=== PATIENT | male | born 1990 | race Caucasian/White ===

== ENCOUNTER 2021-12-31 21:27 | Emergency (ER) | payer BC, SELFPAY ==
[2021-12-31 21:41] VITALS: BP 120/85; PULSE 104; RESP 20; TEMP 36.7; O2SAT 95; BMI 18.5
--- NOTE | 2021-12-31 21:54 | ED_ITS ---
HPI - Psych General Chief Complaint: Psychiatric Problem/Disorder Stated Complaint: Stressed, mental health Time Seen by Provider: 12/31/21 21:49 History of Present Illness HPI Narrative: Pt states that he has been going through a difficult time recently with increase stress. He has made several statements to his that he is going to kill himself and that they would not be able to stop him. Pt has a history of both self injurious behavior as well as suicide attempts in the past. Pt states he has no pain or discomfort at this time. He has not injured himself recently and has not used any substances of abuse recently. Pt does not appear to have a finite plan of self harm. Only home medication is Synthroid. Related Data Allergies Allergy/AdvReac Type Severity Reaction Status Date / Time No Known Drug Allergies Allergy Verified 12/31/21 21:40 Review of Systems Status of ROS: Reports: 10 or more systems reviewed and unremarkable except as noted in History and below PFSH PFSH Medical History Depression Suicide attempt by drug overdose Social History Smoking Status: Never smoker Non-prescribed substance use: marijuana (any form) Exam Narrative: Exam Narrative: EXAM GENERAL: Patient appears comfortable and well. EYES: No scleral icterus. THYROID: no thyroid nodules or thyromegaly. LYMPH: No supraclavicular or cervical lymphadenopathy. SKIN: Visible skin seen during exam normal or with benign process only. EXT: No dependent lower extremity pedal edema. HEART: Regular rate and rhythm with no murmurs, rubs, or gallops. LUNGS: Clear to auscultation bilaterally with no crackles or wheezes. ABD: Soft, non tender, non distended. PSYCH: Good eye contact, speech is not pressured. Const: Vital Signs, click to edit/add: Vital Signs - 24 hr 12/31/21 21:41 Temperature 98.0 F Pulse Rate [Left P ulse Oximeter] 104 H Respiratory Rate 20 Blood Pressure [Ri ght Upper Arm] 120/85 Pulse Oximetry 95 Oxygen Delivery Me thod Room Air Course Course Hospital Course: Pt seen and examined. Appropriate laboratories collected. Tele psych requested. Reevaluation(s) Reevaluation #1: Labs reviewed. Psych assessment indicates that the patient can be safely discharged with outpt follow up. Pt contracts for safety. Time: 23:58 Vital Signs Vital signs: Initial Vital Signs Temperature 98.0 F 12/31/21 21:41 Temperature Source Temporal Artery Scan 12/31/21 21:41 Pulse Rate 104 H 12/31/21 21:41 Pulse Rhythm 12/31/21 21:41 Respiratory Rate 20 12/31/21 21:41 Blood Pressure 120/85 12/31/21 21:41 Blood Pressure Mean 96 12/31/21 21:41 Blood Pressure Position Semi-Fowlers 12/31/21 21:41 Pulse Oximetry 95 12/31/21 21:41 Oxygen Delivery Method 12/31/21 21:41 Vital Signs Temperature 98.0 F 12/31/21 21:41 Pulse Rate 104 H 12/31/21 21:41 Respiratory Rate 20 12/31/21 21:41 Blood Pressure 120/85 12/31/21 21:41 Pulse Oximetry 95 12/31/21 21:41 Oxygen Delivery Method 12/31/21 21:41 Temperature 98.0 F 12/31/21 21:41 Pulse Rate 104 H 12/31/21 21:41 Respiratory Rate 20 12/31/21 21:41 Blood Pressure 120/85 12/31/21 21:41 Pulse Oximetry 95 12/31/21 21:41 Oxygen Delivery Method 12/31/21 21:41 MDM - Psych MDM Narrative Medical decision making narrative: Pt presents after making suicidal comments. Pt lab positive for marijuana use. DEC assessment indicates pt can be discharged with outpt follow up. No unstable medical issues. Pt contracts for self care and is discharged. Differential Diagnosis Differential diagnosis: Likely acute psychosis, suicidal ideation, bipolar disorder, depression, drug-induced psychotic disorder and acute anxiety Lab Data Labs: Lab Results 12/31/21 12/31/21 12/31/21 Range/Units 22:14 22:14 22:55 WBC 9.83 (4.50-11.00) K/uL RBC 5.17 (4.30-5.90) m/uL Hgb 16.0 (13.5-17.5) gm/dL Hct 46.7 (37.0-53.0) % MCV 90 (80-100) fL MCH 31 (26-34) pg MCHC 34 (32-36) gm/dL RDW Coeff of Ted 11.9 (11.5-15.5) % Plt Count 335 (140-440) K/uL Neut % (Auto) 77.0 H (42.0-72.0) % Lymph % (Auto) 16.2 L (20-44) % [place] % (Auto) 5.7 (0.0-11.0) % Eos % (Auto) 0.1 (0.0-7.0) % Baso % (Auto) 0.4 (0.0-3.0) % Neut # (Auto) 7.60 H (1.7-7.0) K/uL Lymph # (Auto) 1.60 (0.90-2.90) K/uL [place] # (Auto) 0.60 (0.00-0.90) K/UL Eos # (Auto) 0.01 (0.00-0.50) K/uL Baso # (Auto) 0.04 (0.00-0.30) K/uL Abs Immat Gran (auto) 0.06 (0.00-0.30) K/uL Sodium 138 (135-149) mmol/L Potassium 3.8 (3.6-5.1) mmol/L Chloride 103 (96-114) mmol/L Carbon Dioxide 23 (20-32) mmol/L BUN 17 (5-24) mg/dL Creatinine 0.9 (0.5-1.5) mg/dL Estimated Creat Clear 93.62 Estimated GFR 116 ml/min Glucose 118 H (60-115) mg/dL Calcium 9.8 (8.4-10.6) mg/dL Total Bilirubin 0.8 (0.1-1.5) mg/dL AST 35 (12-35) U/L ALT 28 (4-50) U/L Alkaline Phosphatase 68 (40-150) U/L Total Protein 8.2 (6.0-8.3) g/dL Albumin 5.2 H (3.3-5.0) g/dL Salicylates 3.3 (1.0-10) mg/dL Urine Opiates Screen Negative (Negative) Ur Oxycodone Screen Negative (Negative) Urine Methadone Screen Negative (Negative) Ur Propoxyphene Screen Negative (Negative) Acetaminophen < 10.0 L (10.0-30.0) ug/mL Ur Barbiturates Screen Negative (Negative) U Tricyclic Antidepress Negative (Negative) Ur Phencyclidine Scrn Negative (Negative) Ur Amphetamines Screen Negative (Negative) U Methamphetamines Scrn Negative (Negative) U Benzodiazepines Scrn Negative (Negative) Urine Cocaine Screen Negative (Negative) U Marijuana (THC) Screen POSITIVE A* (Negative) Ur Drug Screen Comment See Note Ethyl Alcohol < 0.01 L (0.01-0.03) % Discharge Plan Discharge Clinical Impression: Depression Patient Disposition: Home, Self-Care Condition: Stable Instructions: Depression (ED) Additional Instructions: Follow outpatient plan as discussed. Return if we can be of further help. Activity Level: No Restrictions Discharge Diet: Regular Stand Alone Forms: [facility] Info Instructions
[2021-12-31 22:18] LABS: Basophils Absolute Auto 0.04 K/uL (0.00-0.30); Basophils Percent Auto 0.4 % (0.0-3.0); Eosinophils Absolute Auto 0.01 K/uL (0.00-0.50); Eosinophils Percent Auto 0.1 % (0.0-7.0); Hematocrit 46.7 % (37.0-53.0); Immature Granulocytes Abs Auto 0.06 K/uL (0.00-0.30); Lymphocytes Percent Auto 16.2 % (20-44); Mean Corpuscular HGB Conc 34 gm/dL (32-36); Mean Corpuscular Hemoglobin 31 pg (26-34); Mean Corpuscular Volume 90 fL (80-100); Monocytes Percent Auto 5.7 % (0.0-11.0); Platelet Count* 335 K/uL (140-440); RDW Coefficient of Variation % 11.9 % (11.5-15.5); Red Blood Count 5.17 m/uL (4.30-5.90); White Blood Count* 9.83 K/uL (4.50-11.00)
[2021-12-31 22:40] LABS: Slide Review Reflex No
[2021-12-31 22:43] LABS: Albumin* 5.2 g/dL (3.3-5.0); Chloride* 103 mmol/L (96-114)
[2021-12-31 22:44] LABS: Potassium* 3.8 mmol/L (3.6-5.1); Sodium* 138 mmol/L (135-149)
[2021-12-31 22:46] LABS: Alanine Aminotransferase* 28 U/L (4-50); Alkaline Phosphatase* 68 U/L (40-150); Aspartate Amino Transferase* 35 U/L (12-35); Bilirubin Total* 0.8 mg/dL (0.1-1.5); Blood Urea Nitrogen* 17 mg/dL (5-24); Carbon Dioxide* 23 mmol/L (20-32); Creatinine* 0.9 mg/dL (0.5-1.5); Est. Creatinine Clearance* 93.62; Estimated Glomerular Filt Rate 116 ml/min; Glucose* 118 mg/dL (60-115); Total Protein* 8.2 g/dL (6.0-8.3)
[2021-12-31 22:47] LABS: Calcium* 9.8 mg/dL (8.4-10.6); Salicylate* 3.3 mg/dL (1.0-10)
[2021-12-31 22:49] LABS: Acetaminophen* < 10.0 ug/mL (10.0-30.0); Ethanol* < 0.01 % (0.01-0.03)
[2021-12-31 23:12] LABS: Amphetamine Screen Urine Negative (Negative); Barbiturate Screen Urine Negative (Negative); Benzodiazepines Screen Urine Negative (Negative); Cocaine Screen Urine Negative (Negative); Methadone Screen Urine Negative (Negative); Methamphetamines Screen Urine Negative (Negative); Opiate Screen Urine Negative (Negative); Oxycodone Screen Urine Negative (Negative); Phencyclidine Screen Urine Negative (Negative); Tricyclic Antidepressant Urine Negative (Negative)
[2021-12-31 23:14] LABS: Cannabinoid Screen Urine POSITIVE (Negative)
== END 2022-01-01 00:53 | disposition home or self-care (01) ==
PROVIDERS: Emergency Provider Internal Medicine; PCP Surgery
DX: F32.A Depression, unspecified (principal)
CPT/HCPCS: 36415; 80053; 80143; 80179; 80306; 82077; 85025; 99283

== ENCOUNTER 2023-09-06 19:02 | Emergency (ER) | payer BC, SELFPAY ==
[2023-09-06 19:08] VITALS: BP 109/81; PULSE 79; RESP 16; TEMP 36.4; O2SAT 98; BMI 22.2
--- NOTE | 2023-09-06 19:26 | ED_ITS ---
HPI - General Adult General Chief complaint: Nausea/Vomiting Stated complaint: hot flashes/stomach pain/vomiting Time Seen by Provider: 09/06/23 19:16 History of Present Illness HPI narrative: Pt went on vacation in [place], forgot his medications and did not take them for several days. Pt started stating them again on Monday. Pt is reporting having nausea, vomiting, diarrhea, and hot and cold episodes 33-year-old man presenting to emergency department with concern of vomiting diarrhea and abdominal cramping. Went to vacation in [place] and was without his levothyroxine for about 10 days. Has taken it down again over the last 2 days having return to the area. He does feel nauseated. Is not having significant abdominal pain right now has had a couple of episodes of diarrhea today. No known sick contacts. Does not describe any ingestion about food. Has taken thyroid replacement since the age of 10. Never had any abdominal procedures. He does recall being without his thyroid medication for may be a 3 days in the past, over weekend, and will just be very fatigued subsequently. It sounds as though this particular constellation of symptoms would be unusual. He has not measured a fever. He has been hot and cold and was waking up diaphoretic. Noted also has not urinated today. Was not reporting any dysuria. Related Data Home Medications ?Medication ?Instructions ?Recorded ?Confirmed levothyroxine 137 mcg tablet 137 mcg PO DAILY 09/06/23 09/06/23 Allergies Allergy/AdvReac Type Severity Reaction Status Date / Time No Known Drug Allergies Allergy Verified 12/31/21 21:40 Review of Systems Status of ROS: Reports: 6 or more systems reviewed and unremarkable except as noted in History and below [facility] Medical History Depression ?F32.A - Depression, unspecified (ICD-10) Suicide attempt by drug overdose ?T50.902A - Poisoning by unspecified drugs, medicaments and biological substances, intentional self-harm, initial encounter (ICD-10) Social History Smoking Status: Never smoker Non-prescribed substance use: marijuana (any form) Exam Narrative: Exam Narrative: Pleasant. Appears uncomfortable, anxious. Skin is warm and dry. Heart in regular rate and rhythm without murmur or gallop. Lungs are clear. Abdomen is soft and sore to palpation across the upper abdomen in particular. Extremities are well perfused without edema. Const: Vital Signs, click to edit/add: Vital Signs - 24 hr 09/06/23 19:08 09/06/23 23:18 Temperature 97.6 F Pulse Rate [Left P ulse Oximeter] 79 101 H Respiratory Rate 16 20 Blood Pressure [Ri ght Upper Arm] 109/81 115/83 Pulse Oximetry 98 99 Oxygen Delivery Me thod Room Air Room Air Documenting provider has reviewed patient's vital signs: yes Course Vital Signs Vital signs: Initial Vital Signs Temperature 97.6 F 09/06/23 19:08 Temperature Source Temporal Artery Scan 09/06/23 19:08 Pulse Rate 79 09/06/23 19:08 Pulse Rhythm Regular 09/06/23 19:08 Respiratory Rate 16 09/06/23 19:08 Blood Pressure 109/81 09/06/23 19:08 Blood Pressure Mean 90 09/06/23 19:08 Blood Pressure Position Sitting 09/06/23 19:08 Pulse Oximetry 98 09/06/23 19:08 Oxygen Delivery Method Room Air 09/06/23 19:08 Vital Signs Temperature 97.6 F 09/06/23 19:08 Pulse Rate 79 09/06/23 19:08 Respiratory Rate 16 09/06/23 19:08 Blood Pressure 109/81 09/06/23 19:08 Pulse Oximetry 98 09/06/23 19:08 Oxygen Delivery Method Room Air 09/06/23 19:08 Temperature 97.6 F 09/06/23 19:08 Pulse Rate 101 H 09/06/23 23:18 Respiratory Rate 20 09/06/23 23:18 Blood Pressure 115/83 09/06/23 23:18 Pulse Oximetry 99 09/06/23 23:18 Oxygen Delivery Method Room Air 09/06/23 23:18 Medications Administered Medications: Discontinued Medications Generic Name Dose Route Start Last Admin Trade Name Freq PRN Reason Stop Dose Admin Diazepam 5 mg 09/06/23 22:41 09/06/23 22:57 Diazepam 5 Mg/Ml Inj IV 09/06/23 22:42 5 mg ONCE ONE Administration Sodium Chloride 1,000 mls @ 1,000 mls/hr 09/06/23 19:35 09/06/23 21:17 0.9 % Sodium Chloride 1000 Ml IV 09/06/23 20:34 Infused .Q1H ONE Infusion Lactated Ringer's 1,000 mls @ 1,000 mls/hr 09/06/23 21:29 09/06/23 22:48 Lactated Ringers 1000 Ml IV 09/06/23 22:28 Infused .Q1H ONE Infusion Ondansetron HCl 4 mg 09/06/23 19:35 09/06/23 19:56 Ondansetron 2 Mg/Ml Inj IVP 09/06/23 19:36 4 mg ONCE ONE Administration Medical Decision Making MDM Narrative Medical decision making narrative: Would seem to be experiencing a viral illness NOS and possibly exacerbated by being without his thyroid medication. Would like to offer symptom relief at a minimum. Differential would include hepatitis gastritis/enteritis, hyperthyroid I suppose could contribute to these symptoms but has actually been missing medication Check labs for electrolyte abnormalities, other red flags. IV hydration and Zofran. On reassessment overall improved but still rather anxious and feels could benefit from more fluid resuscitation. He does feel that diazepam would be helpful as well. Labs overall reassuring Overall improved during time in the emergency department. See patient discharge plan for further discussion Lab Data Lab results reviewed: Yes I reviewed the patient's lab results Labs: Lab Results 09/06/23 Range/Units 19:53 WBC 9.06 (4.50-11.00) K/uL RBC 5.20 (4.30-5.90) m/uL Hgb 15.8 (13.5-17.5) gm/dL Hct 46.5 (37.0-53.0) % MCV 89 (80-100) fL MCH 30 (26-34) pg MCHC 34 (32-36) gm/dL RDW Coeff of Ted 11.8 (11.5-15.5) % Plt Count 305 (140-440) K/uL Neut % (Auto) 76.0 H (42.0-72.0) % Lymph % (Auto) 16.0 L (20-44) % [place] % (Auto) 7.1 (0.0-11.0) % Eos % (Auto) 0.4 (0.0-7.0) % Baso % (Auto) 0.4 (0.0-3.0) % Neut # (Auto) 6.90 (1.7-7.0) K/uL Lymph # (Auto) 1.40 (0.90-2.90) K/uL [place] # (Auto) 0.60 (0.00-0.90) K/UL Eos # (Auto) 0.04 (0.00-0.50) K/uL Baso # (Auto) 0.04 (0.00-0.30) K/uL Abs Immat Gran (auto) 0.01 (0.00-0.30) K/uL Imm/Tot Granulo (auto) 0.1 % Sodium 139 (135-149) mmol/L Potassium 3.7 (3.6-5.1) mmol/L Chloride 101 (96-114) mmol/L Carbon Dioxide 25 (20-32) mmol/L Anion Gap 13 (7-15) mEq/L BUN 14 (5-24) mg/dL Creatinine 0.8 (0.5-1.5) mg/dL Estimated Creat Clear 124.03 Estimated GFR 118 ml/min Glucose 106 (60-115) mg/dL Calcium 10.1 (8.4-10.6) mg/dL Magnesium 1.9 (1.5-2.6) mg/dL C-Reactive Protein < 0.5 L (0.5-1.0) mg/dL TSH 3.980 (0.270-4.20) uIU/mL SARS-CoV-2 (PCR) Negative SARS-CoV-2 (Negative) Influenza Type A (PCR) Negative PCR FLU A (Negative) Influenza Type B (PCR) Negative PCR FLU B (Negative) ECG Data Attestation: I personally reviewed and interpreted this ECG as follows: (Normal sinus rhythm. Partial right bundle. Rate of 72) Discharge Plan Discharge Clinical Impression: Vomiting, Diarrhea Patient Disposition: Home w/ Parent or Adult Condition: Improved Additional Instructions: I hope things turn around in the next day or 2 for you. Continue to take your levothyroxine as prescribed. Consider follow-up in clinic next week. Be seen sooner for persistent chest pain, shortness of breath, increasing abdominal pain, associated fever, persistent tachycardia, worsening lightheadedness, new in focal weakness. As long as no fever or your not seeing blood in your stool, might try loperamide for diarrhea Zofran for nausea from [facility]. Given your history of esophageal reflux, might try daily famotidine or omeprazole over the next 2 weeks and then reassess need. Prescriptions: No Action levothyroxine 137 mcg tablet 137 mcg PO DAILY Follow Up/Referrals: Syed Ortega MD [Primary Care Provider] - Stand Alone Forms: [facility] Info Instructions
[2023-09-06] MEDS: ONDANSETRON 2 MG/ML inj 4 MG IVP (19:56)
[2023-09-06] MEDS: 0.9 % SODIUM CHLORIDE 1000 ml 1,000 ML IV (19:56)
[2023-09-06 20:07] LABS: Basophils Absolute Auto 0.04 K/uL (0.00-0.30); Basophils Percent Auto 0.4 % (0.0-3.0); Eosinophils Absolute Auto 0.04 K/uL (0.00-0.50); Eosinophils Percent Auto 0.4 % (0.0-7.0); Hematocrit 46.5 % (37.0-53.0); Hemoglobin* 15.8 gm/dL (13.5-17.5); Immature Granulocytes Abs Auto 0.01 K/uL (0.00-0.30); Immature Granulocytes Pct Auto 0.1 %; Mean Corpuscular HGB Conc 34 gm/dL (32-36); Mean Corpuscular Hemoglobin 30 pg (26-34); Mean Corpuscular Volume 89 fL (80-100); Monocytes Percent Auto 7.1 % (0.0-11.0); Platelet Count* 305 K/uL (140-440); RDW Coefficient of Variation % 11.8 % (11.5-15.5); White Blood Count* 9.06 K/uL (4.50-11.00)
[2023-09-06 20:34] LABS: Chloride* 101 mmol/L (96-114); Potassium* 3.7 mmol/L (3.6-5.1); Sodium* 139 mmol/L (135-149)
[2023-09-06 20:36] LABS: Slide Review Reflex No
[2023-09-06 20:37] LABS: Anion Gap 13 mEq/L (7-15); Blood Urea Nitrogen* 14 mg/dL (5-24); Carbon Dioxide* 25 mmol/L (20-32); Creatinine* 0.8 mg/dL (0.5-1.5); Est. Creatinine Clearance* 124.03; Estimated Glomerular Filt Rate 118 ml/min; Glucose* 106 mg/dL (60-115)
[2023-09-06 20:38] LABS: Calcium* 10.1 mg/dL (8.4-10.6); Magnesium* 1.9 mg/dL (1.5-2.6)
[2023-09-06 20:40] LABS: C Reactive Protein* < 0.5 mg/dL (0.5-1.0)
[2023-09-06 21:45] LABS: PCR FLU A Negative PCR FLU A (Negative); PCR FLU B Negative PCR FLU B (Negative); SARS PCR* Negative SARS-CoV-2 (Negative)
[2023-09-06] MEDS: LACTATED RINGERS 1000 ML 1,000 ML IV (21:46)
[2023-09-06] MEDS: diazePAM 5 MG/ML inj IV (22:57)
[2023-09-06 23:18] VITALS: BP 115/83; PULSE 101; RESP 20; O2SAT 99
== END 2023-09-06 23:50 | disposition home or self-care (01) ==
PROVIDERS: Emergency Provider Family Medicine; PCP Surgery
DX: R11.10 Vomiting, unspecified (principal); R19.7 Diarrhea, unspecified
CPT/HCPCS: 36415; 80048; 83735; 84443; 85025; 86140; 87631; 96361; 96374; 96375; 99284; J2405; J3360; J7030; J7120